=== PATIENT | male | born 1965 | race Caucasian/White ===

== ENCOUNTER 2017-01-04 07:00 | Day surgery (SDC) | payer BC ==
[2017-01-01 10:57] LABS: HEMATOCRIT 48.6 % (42.0-54.0); HEMOGLOBIN 16.9 g/dL (13.5-17.5); MCH 31.6 pg (26.0-34.0); MCHC 34.8 g/dL (31.0-37.0); MEAN PLATELET VOLUME 11.9 fL (7.4-10.4); RBC 5.34 10x6/uL (4.20-6.10); RDW 13.1 % (11.5-14.5)
[2017-01-01 11:06] LABS: CALCIUM 9.3 mg/dL (8.5-10.1); CARBON DIOXIDE 27.5 mmol/L (21.0-32.0); CREATININE - SERUM 1.2 mg/dL (0.6-1.3); POTASSIUM - SERUM 3.5 mmol/L (3.5-5.1)
[~2017-01-04] VITALS: Ht 193 cm; Wt 113.4 kg
[~2017-01-04 07:00] MED LIST: AMBIEN10 MG PO; AMITRIPTYLINE H50 MG PO; GLIMEPIRIDE4 MG PO; HCTZ25 MG PO; NEURONTIN800 MG PO; PROTONIX40 MG PO; REGLAN10 MG PO; TORADOL10 MG PO
[2017-01-04 08:11] VITALS: BP 128/78; Ht 193 cm; Wt 113.4 kg
[2017-01-04] MEDS ORDERED: HYDROCODONE-APA1 TAB PO (10:21)
--- NOTE | 2017-01-04 12:49 | NUR ---
6948 DISCHARGE INSTRUCTIONS REVIEWED WITH PATIENT; VERBALIZED UNDERSTANDING
--- NOTE | 2017-01-14 12:07 | OP ---
PATIENT NAME: ETIENNE ROB MEDICAL RECORD: [id number] :61 LOCATION:D.OPS ADMISSION DATE: SURGEON: GIULIANO ATKINSON MD DATE OF OPERATION: 01/04/2017 PREOPERATIVE DIAGNOSES: 1. Symptomatic bunion of the right foot. 2. Intractable plantar keratosis of the second toe. PROCEDURES: 1. Cheilectomy with capsular shift of the right toe and a medial release of the right MTP joint. 2. Excision of intractable plantar keratosis of the second toe. SURGEON: Giuliano Atkinson MD. ANESTHESIA: General. INTRAOPERATIVE COMPLICATIONS: None. SUMMARY OF PATHOLOGIC FINDINGS: The patient had a large prominent painful medial bump, although his intermetatarsal angle was not bad, neither was his hallux valgus angle. Decision was made to do a simple cheilectomy with a medial release and MCP pinning to hold it straight. OPERATIVE SUMMARY IN DETAIL: After obtaining the appropriate preoperative orthopedic surgery consent as well as anesthetic consultation, evaluation and clearance, the patient was brought to the operating room and placed on the operating table in supine position. After general laryngeal mask was administered, tourniquet was placed about the proximal aspect of the right lower extremity. Right lower extremity was then prepped and draped in routine sterile fashion. Leg was elevated, exsanguinated and tourniquet was inflated to 350 mmHg. An incision was made directly over the medial aspect of the MTP joint. It was taken down to the level of the bony prominence. The plantar nerve was identified and retracted. The dissection was carried down subperiosteal. Care was taken to keep the capsule intact for later capsular reefing. Small sagittal saw was then used to remove the bump and complete the cheilectomy. The articular surfaces looked well maintained. Having completed this, a second incision was made between the first and second toe. This was carried down to the medial capsule, which was released, helping the toe come back into a better alignment. While holding the toe in alignment after the capsular release, the MCP joint was pinned from the distal phalanx all the way to the MTP joint. Having completed this, capsular reefing was done on the medial side to tighten up the capsule with a [id number] imbricated style stitch. This was done with #1 Vicryl. This was followed by 4-0 Prolene for incisional closure. The medial incision was likewise closed with a 4-0 Prolene. At this point, the IPK on the tibial side of the second toe was excised in its entirety in elliptical fashion, taken down to the level of the entire base. This was removed in its entirety. The wound was irrigated and closed with 4-0 Prolene in interrupted fashion. Having completed this, sterile dressings were applied along with a tension bandage to help hold the toe in the correct alignment. The patient was then awakened, taken to recovery room in stable condition. All final needle and sponge counts were correct. TRANSINT:[id number] Voice Confirmation ID: [id number] DOCUMENT ID: [id number] OPERATIVE REPORT [id number] ETIENNE ROB MD, GIULIANO KINGSLEY at 1207 CC: [id number] DICTATION DATE: 01/14/17 0956 TEASEL SETTER: 01/14/17 1118 [facility] 01/04/17 [id number] [place] [address]
== END 2017-01-04 12:40 | disposition home or self-care (01) ==
LOC: D.OPS 07:00 → D.PAN 08:30 → D.OPS 09:15 → D.PAN 09:55 → D.OPS 12:40
PROVIDERS: Anesthesiology
DX: M20.11 Hallux valgus (acquired), right foot (principal); L84 Corns and callosities; I10 Essential (primary) hypertension; E11.9 Type 2 diabetes mellitus without complications; E66.9 Obesity, unspecified; K21.9 Gastro-esophageal reflux disease without esophagitis; Z68.30 Body mass index [BMI] 30.0-30.9, adult